=== PATIENT | male | born 1945 | race Caucasian/White ===

== ENCOUNTER → 2017-05-06 | Outpatient (CLI) | payer MEDICARE ==
[~2017-05-06] MED LIST: ANTIBIOTIC O500 U/GM TP; ASPIRIN81 M1 PO; CILOSTAZOL; CILOSTAZOL100 MG PO; COREG3.125 MG PO; ENTERIC ASPIRI325 MG; HYDROCODONE BIT1 T11 PO; LEVOFLOXACIN500 MG PO; LISINOPRIL5 MG PO; NORCO 10-325 T1 EACH PO; SIMVASTATIN; ZOCOR10 MG PO; [UNRECOGNIZED DRUG - REMARK]
== END | disposition home or self-care (01) ==
LOC: LAB 11:51
DX: R20.9 Unspecified disturbances of skin sensation (principal)

== ENCOUNTER 2017-05-30 16:31 | Emergency (ER) | payer MEDICARE ==
[~2017-05-30] VITALS: Ht 167.6 cm; Wt 70.8 kg
--- NOTE | ~2017-05-30 | EKG ---
[place], [place] ELECTROCARDIOGRAM REPORT NAME: DONNA DAVALOS UNIT #: [id number] ROOM: DOCTOR: TOMMIE JOHNSON MD BIRTHDATE: [birth year] DOS: 05/30/2017 TIME: 1706 hours. Normal sinus rhythm at 96 beats per minute. Possible old inferior wall IN. No previous tracing is available for comparison. TOMMIE JOHNSON MD CM:EKGRPT:ELECTROCARDIOGRAM REPORT [id number] TOMMIE JOHNSON MD
[2017-05-30 17:16] LABS: BASO % 0.3 % (0.0-1.0); EOS # 0.1 10*3/uL (0.0-0.4); EOS % 0.6 % (1.0-4.0); HEMATOCRIT 41.5 % (42.0-52.0); HEMOGLOBIN 14.3 g/dl (14.0-18.0); LYMPH # 0.9 10*3/uL (1.3-4.4); LYMPH % 6.8 % (27.0-41.0); MEAN CELL VOLUME 90.6 fl (80.0-94.0); MEAN CORPUSCULAR HGB 31.2 pg (27.0-31.0); MEAN CORPUSCULAR HGB CONC 34.5 g/dl (33.0-37.0); MEAN PLATELET VOLUME 9.5 fl (9.6-12.3); MONO # 0.7 10*3/uL (0.1-1.0); MONO % 5.3 % (3.0-9.0); NEUT % 86.7 % (47.0-73.0); PLATELET COUNT AUTOMATED 159 10*3/uL (130-400); RED BLOOD COUNT 4.58 10*6/uL (4.50-5.90); RED CELL DISTRI WIDTH 12.6 % (0-14.5); WHITE BLOOD COUNT 12.7 10*3/uL (4.8-10.8)
[2017-05-30 17:33] LABS: ALBUMIN 4.1 gm/dl (3.1-4.5); ALKALINE PHOSPHATASE 105 U/L (45-117); BILIRUBIN, TOTAL 0.8 mg/dl (0.2-1.0); BUN 17 mg/dl (7-24); CARBON DIOXIDE 24 mmol/L (21-32); CHLORIDE 102 mmol/L (98-107); EST GLOM FILT AFRICAN AMERICAN > 60 ml/min; GLUCOSE 131 mg/dL (65-99); POTASSIUM 3.5 mmol/L (3.5-5.1); SGOT/AST 17 IU/L (3-35); SGPT/ALT 19 U/L (12-78); SODIUM 135 mmol/L (136-145); TOTAL PROTEIN 6.9 gm/dL (6.4-8.2)
[2017-05-30 17:39] LABS: TROPONIN I < 0.015 ng/ml (<0.045)
[2017-05-30] MEDS ORDERED: AMINOPHYLLIN200 MG PO (18:40)
[2017-05-30 19:15] LABS: BILIRUBIN NEGATIVE (NEGATIVE); BLOOD 1+ (NEGATIVE); CLARITY CLEAR (CLEAR); COLOR YELLOW (YELLOW); GLUCOSE NEGATIVE (NEGATIVE); KETONE NEGATIVE (NEGATIVE); LEUKO ESTERASE NEGATIVE (NEGATIVE); NITRITE NEGATIVE (NEGATIVE); PH 6.5 (5.0-9.0); PROTEIN NEGATIVE (NEGATIVE); SPECIFIC GRAVITY <= 1.005 (1.005-1.030); UROBILINOGEN 0.2 E.U./dl (0.2-1.0)
[2017-05-30 19:20] LABS: URINE REFLEX COMMENT YES (NO)
[2017-05-30 19:21] LABS: BACTERIA TRACE
== END 2017-05-30 18:58 | disposition home or self-care (01) ==
LOC: ED 16:31
PROVIDERS: Nurse Practitioner Family
DX: R53.1 Weakness (principal); N39.0 Urinary tract infection, site not specified; R31.9 Hematuria, unspecified; R35.0 Frequency of micturition; F17.200 Nicotine dependence, unspecified, uncomplicated; Z95.1 Presence of aortocoronary bypass graft; Z95.5 Presence of coronary angioplasty implant and graft; Z79.899 Other long term (current) drug therapy; Z79.82 Long term (current) use of aspirin

== ENCOUNTER 2017-07-29 22:09 | Emergency (ER) | payer MEDICARE ==
[~2017-07-29] VITALS: Ht 170.1 cm; Wt 90.7 kg
--- NOTE | ~2017-07-29 | EKG ---
[place], [place] ELECTROCARDIOGRAM REPORT NAME: DONNA DAVALOS UNIT #: [id number] ROOM: DOCTOR: TOMMIE JOHNSON MD BIRTHDATE: [birth year] DOS: 07/29/2017 TIME: 2355 hours. Normal sinus rhythm at 73 beats per minute. 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 Nonspecific/flattened T-wave in lateral chest lead. An abnormal ECG. No previous tracing is available for comparison. TOMMIE JOHNSON MD CM:EKGRPT:ELECTROCARDIOGRAM REPORT [id number] TOMMIE JOHNSON MD
[~2017-07-29 22:09] MED LIST changes: +AMINOPHYLLIN200 MG PO
[2017-07-29] MEDS ORDERED: CLONIDINE0.2 MG PO (22:13)
[2017-07-29 23:24] LABS: BASO # 0.1 10*3/uL (0.0-0.1); BASO % 0.5 % (0.0-1.0); EOS # 0.3 10*3/uL (0.0-0.4); EOS % 2.1 % (1.0-4.0); LYMPH # 2.5 10*3/uL (1.3-4.4); LYMPH % 18.9 % (27.0-41.0); MEAN CELL VOLUME 88.7 fl (80.0-94.0); MEAN CORPUSCULAR HGB 30.3 pg (27.0-31.0); MEAN CORPUSCULAR HGB CONC 34.1 g/dl (33.0-37.0); MEAN PLATELET VOLUME 9.7 fl (9.6-12.3); MONO # 1.2 10*3/uL (0.1-1.0); MONO % 9.1 % (3.0-9.0); NEUT # 9.1 10*3/uL (2.3-7.9); NEUT % 69.1 % (47.0-73.0); PLATELET COUNT AUTOMATED 186 10*3/uL (130-400); RED BLOOD COUNT 4.62 10*6/uL (4.50-5.90); RED CELL DISTRI WIDTH 13.6 % (0-14.5); WHITE BLOOD COUNT 13.1 10*3/uL (4.8-10.8)
[2017-07-29 23:41] LABS: ALBUMIN 3.5 gm/dl (3.1-4.5); ALKALINE PHOSPHATASE 109 U/L (45-117); BUN 26 mg/dl (7-24); CHLORIDE 104 mmol/L (98-107); CREATININE 1.49 mg/dL (0.70-1.30); MAGNESIUM 2.3 mg/dL (1.5-2.1); POTASSIUM 3.7 mmol/L (3.5-5.1); SGOT/AST 22 IU/L (3-35); SGPT/ALT 27 U/L (12-78); SODIUM 137 mmol/L (136-145); TOTAL PROTEIN 6.9 gm/dL (6.4-8.2)
[2017-07-29 23:42] LABS: TROPONIN I < 0.015 ng/ml (<0.045)
[2017-07-30 00:14] LABS: BILIRUBIN NEGATIVE (NEGATIVE); BLOOD TRACE-INTACT (NEGATIVE); CLARITY SL CLOUDY (CLEAR); COLOR YELLOW (YELLOW); GLUCOSE NEGATIVE (NEGATIVE); KETONE NEGATIVE (NEGATIVE); LEUKO ESTERASE NEGATIVE (NEGATIVE); NITRITE NEGATIVE (NEGATIVE); PH 5.5 (5.0-9.0); UROBILINOGEN 0.2 E.U./dl (0.2-1.0)
== END 2017-07-30 01:35 | disposition home or self-care (01) ==
LOC: ED 22:09
PROVIDERS: Emergency Medicine Emergency Medical Services
DX: R55 Syncope and collapse (principal); R26.9 Unspecified abnormalities of gait and mobility; Z95.1 Presence of aortocoronary bypass graft; Z79.82 Long term (current) use of aspirin

== ENCOUNTER 2018-08-05 10:27 | Emergency (ER) | payer MEDICARE ==
[~2018-08-05] VITALS: Ht 167.6 cm; Wt 74.8 kg
[~2018-08-05 10:27] MED LIST changes: +CLONIDINE0.2 MG PO
== END 2018-08-05 11:36 | disposition home or self-care (01) ==
LOC: ED 10:27
DX: S01.312A Laceration without foreign body of left ear, initial encounter (principal); Z91.041 Radiographic dye allergy status; Z79.82 Long term (current) use of aspirin; Z79.899 Other long term (current) drug therapy; Z95.1 Presence of aortocoronary bypass graft; X58.XXXA Exposure to other specified factors, initial encounter; Y93.89 Activity, other specified; Y92.89 Other specified places as the place of occurrence of the external cause; Y99.8 Other external cause status